=== PATIENT | male | born 1970 | race Caucasian/White ===

== ENCOUNTER 2020-04-01 00:11 | Emergency (ER) | payer OTHER ==
[~2020-04-01] VITALS: Ht 180.3 cm; Wt 80.7 kg
[~2020-04-01 00:11] MED LIST: CEPHALEXIN500 MG ORAL; MUPIROCIN22 GM TOPIC
--- NOTE | 2020-04-01 00:40 | NUR ---
ED Nurse Note: Pt traiged but stepped outside to "lock up" his belongings
--- NOTE | 2020-04-01 01:00 | NUR ---
ED Nurse Note: Pt never came back and was not seen by ERMD. removed from tracker, never assessed
--- NOTE | 2020-04-01 01:22 | Emergency Room Report ---
History of Present Illness General Chief Complaint: Hypertension Source: Patient Present Illness HPI Patient initially stated to intake that he wanted medications refilled. 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 Allergies: Coded Allergies: No Known Allergies (Unverified , 03/15/20) COVID-19 Screening Contact w/high risk pt: No Experienced COVID-19 symptoms?: No COVID-19 Testing performed MANAGER MEDIA RELATIONS: Yes COVID-19 Screening: Negative COVID-19 COVID-19 Testing Source: SYSTEMS SOFTWARE DEVELOPER Nursing Documentation-[facility] Past Medical History: No History, Except For Hx Hypertension: Yes Hx Diabetes: Yes Physical Exam Vital Signs Date Time Temp Pulse Resp B/P (MAP) Pulse Ox O2 Delivery O2 Flow Rate FiO2 04/01/20 00:14 99.1 107 18 181/128 (145) 97 Room Air Sp02 EP Interpretation: reviewed, normal Medical Decision Making Diagnostic Impression: Primary Impression: LWBSMD Additional Impression: Hypertension Qualified Codes: I10 - Essential (primary) hypertension ER Course Patient never came back to room 4. He said he had to go to his car to get something to show the MD. RN had warned him that he had to be seen because his blood pressure was high prior to his leaving for his car. No phone to contact patient. Last Vital Signs Date Time Temp Pulse Resp B/P (MAP) Pulse Ox O2 Delivery O2 Flow Rate FiO2 04/01/20 06:02 107 18 Room Air 04/01/20 06:02 99.1 181/128 97 Status: unchanged Disposition: LEFT W/OUT BEING SEEN Condition: Unknown Referrals: [facility],REFERRING (PCP) Manolo Cordero MD Apr 01, 2020 01:22
[2020-04-01 06:02] VITALS: BP 181/128
== END 2020-04-01 01:00 | disposition left against medical advice (07) ==
LOC: EMR 00:38
DX: Z76.0 Encounter for issue of repeat prescription (principal); Z53.21 Procedure and treatment not carried out due to patient leaving prior to being seen by health care provider; E11.9 Type 2 diabetes mellitus without complications

== ENCOUNTER 2020-06-14 14:34 | Emergency (ER) | payer OTHER ==
[~2020-06-14] VITALS: Ht 180.3 cm; Wt 81.6 kg
[2020-06-14 14:45] VITALS: BP 168/98
[2020-06-14] MEDS ORDERED: Piperacillin/Tazobactam 3.375 GM in NS 110 ML IVPB ONE (15:00)
[2020-06-14 15:30] LABS: BASOPHILS % (AUTO) 1.2 % (0.0-2.0); EOSINOPHILS % (AUTO) 2.6 % (0.0-3.0); HEMATOCRIT 37.5 % (42.0-52.0); HEMOGLOBIN 12.5 G/DL (14.2-18.0); LYMPHOCYTES % (AUTO) 23.6 % (20.0-45.0); MEAN CORPUSCULAR VOLUME 89 FL (80-99); MONOCYTES % (AUTO) 10.2 % (1.0-10.0); NEUTROPHILS % (AUTO) 62.4 % (45.0-75.0); PLATELET COUNT 294 K/UL (150-450); RED BLOOD COUNT 4.21 M/UL (4.70-6.10); RED CELL DISTRIBUTION WIDTH 14.8 % (11.6-14.8); WHITE BLOOD COUNT 7.8 K/UL (4.8-10.8)
[2020-06-14 15:41] LABS: ANION GAP 7 mmol/L (5-15); BLOOD UREA NITROGEN 18 mg/dL (7-18); CALCIUM 8.6 MG/DL (8.5-10.1); CARBON DIOXIDE 31 MMOL/L (21-32); CHLORIDE 101 MMOL/L (98-107); CREATININE 1.2 MG/DL (0.55-1.30); POTASSIUM 3.6 MMOL/L (3.5-5.1); SODIUM 138 MMOL/L (136-145)
[2020-06-14 15:46] LABS: ALANINE AMINOTRANSFERASE 17 U/L (12-78); ALBUMIN 3.2 G/DL (3.4-5.0); ALBUMIN/GLOBULIN RATIO 0.8 (1.0-2.7); ALKALINE PHOSPHATASE 84 U/L (46-116); ASPARTATE AMINO TRANSFERASE 30 U/L (15-37); BILIRUBIN,TOTAL 0.4 MG/DL (0.2-1.0)
--- NOTE | 2020-06-14 15:47 | Emergency Room Report ---
History of Present Illness General Chief Complaint: Upper Extremity Injury Source: Patient Present Illness HPI 50-year-old male with no known significant past medical history appears to be under the influence of unknown stimulus here complaining of a laceration left elbow that occurred 2 weeks ago. Patient reports that few days ago he went to [facility] and they wanted to admit him there however patient left AGAINST MEDICAL ADVICE. Patient has full range of motion of the elbow and denies any tingling or numbness. Denies any fever and chills, cellulitis left arm noted. Patient also mentions some ulceration left lower extremity. Appears to to be track lines. However patient denies IV drug use. Denies fever and chills. Denies other medical history. Denies any tingling or numbness. Allergies: Coded Allergies: No Known Allergies (Unverified , 03/15/20) COVID-19 Screening Contact w/high risk pt: No Experienced COVID-19 symptoms?: No COVID-19 Testing performed CREDENTIALER: No Patient History Past Medical History: see triage record Past Surgical History: none Pertinent Family History: none Immunizations: UTD Reviewed Nursing Documentation: PMH: Agreed; PSxH: Agreed Nursing Documentation-PMH Past Medical History: No History, Except For Hx Hypertension: Yes Hx Diabetes: Yes Review of Systems All Other Systems: negative except mentioned in HPI Physical Exam Vital Signs Date Time Temp Pulse Resp B/P (MAP) Pulse Ox O2 Delivery O2 Flow Rate FiO2 06/14/20 14:39 98.2 91 20 178/105 (129) 98 Room Air Sp02 EP Interpretation: reviewed, abnormal - Elevated blood pressure General Appearance: no apparent distress, alert, GCS 15, non-toxic Head: normocephalic, atraumatic Eyes: bilateral eye normal inspection, bilateral eye PERRL ENT: hearing grossly normal, normal pharynx, no angioedema, normal voice Neck: full range of motion, supple/symm/no masses Respiratory: chest non-tender, lungs clear, normal breath sounds, speaking full sentences Cardiovascular #1: regular rate, rhythm, no edema Cardiovascular #2: 2+ carotid (R), 2+ carotid (L), 2+ radial (R), 2+ radial (L), 2+ dorsalis pedis (R), 2+ dorsalis pedis (L) Gastrointestinal: normal bowel sounds, non tender, soft, non-distended, no guarding, no rebound Rectal: deferred Genitourinary: no CVA tenderness Musculoskeletal: back normal, no calf tenderness, pelvis stable, non-tender, swelling - Left elbow and forearm, ulceration noted Neurologic: alert, motor strength/tone normal, oriented x3, sensory intact, responsive, speech normal Psychiatric: judgement/insight normal, memory normal, mood/affect normal, no suicidal/homicidal ideation Skin: other - Infected laceration left elbow with pus drainage and cellulitis, also infected wound left lower extremity. Lymphatic: no adenopathy Medical Decision Making PA Attestation All diagnoses and treatment plans were reviewed and discussed with my supervising physician Dr. Heard Homeless Attestation The treating physician has assessed and agrees that patient is medically stable for outpatient disposition Diagnostic Impression: Primary Impression: Cellulitis of elbow Additional Impression: Cellulitis of left lower leg ER Course 50-year-old male with no known significant past medical history appears to be under the influence of unknown stimulus here complaining of a laceration left elbow that occurred 2 weeks ago. Patient reports that few days ago he went to [facility] and they wanted to admit him there however patient left AGAINST MEDICAL ADVICE. Patient has full range of motion of the elbow and denies any tingling or numbness. Denies any fever and chills, cellulitis left arm noted. Patient also mentions some ulceration left lower extremity. Appears to to be track lines. However patient denies IV drug use. Denies fever and chills. Denies other medical history. Denies any tingling or numbness. Ddx considered but are not limited to : Cellulitis, sepsis, superficial infection, abscess Vital signs: are WNL, pt. is afebrile H&PE are most consistent with: Cellulitis of elbow and lower leg ORDERS: Sepsis order set, x-ray of left elbow, clindamycin, ibuprofen ED INTERVENTIONS: Zosyn, wound care and dressed DISCHARGE: At this time pt. is stable for d/c to home. Will provide printed patient care instructions, and any necessary prescriptions. Care plan and follow up instructions have been discussed with the patient prior to discharge. Advised patient to follow primary care provider, gave a list of family practices for patient to follow-up with, if worsening symptoms return to the emergency room. EKG Diagnostic Results Rate: normal Rhythm: NSR ST Segments: no acute changes Other Impression No acute ST changes ASA given to the pt in ED: No Chest X-Ray Diagnostic Results Chest X-Ray Diagnostic Results : Chest X-Ray Ordered: Yes # of Views/Limited/Complete: 1 View Indication: Other EP Interpretation: Yes PA Xray: Interpretation reviewed, by supervising MD, and agrees with findings. Interpretation: no consolidation, no effusion, no pneumothorax Impression: No acute disease Electronically Signed by: Keri Mccauley PA-C Other X-Ray Diagnostic Results Other X-Ray Diagnostic Results : X-Ray ordered: Left elbow # of Views/Limited Vs Complete: 3 View Indication: Pain EP Interpretation: Yes PA Xray: Interpretation reviewed, by supervising MD, and agrees with findings. Interpretation: no dislocation, no soft tissue swelling, no fractures Impression: No acute disease Electronically Signed by: Keri Mccauley PA-C Last Vital Signs Date Time Temp Pulse Resp B/P (MAP) Pulse Ox O2 Delivery O2 Flow Rate FiO2 06/14/20 14:39 98.2 91 20 178/105 (129) 98 Room Air Disposition: HOME, SELF-CARE Condition: Stable Scripts Clindamycin Hcl* (CLINDAMYCIN HCL*) 150 Mg Capsule 300 MG ORAL FOUR TIMES A DAY for 7 Days, #28 CAP Prov: Keri Salmon 06/14/20 Ibuprofen (Ibu) 800 Mg Tablet 800 MG PO TID, #30 TAB Prov: Keri Salmon 06/14/20 Referrals: NON PHYSICIAN (PCP) Patient Instructions: Cellulitis, [id number], Wound Care Additional Instructions: Take medication as directed, follow-up with your primary care provider, if worsening symptoms return to the emergency room Keri Salmon Jun 14, 2020 15:47
[2020-06-14] MEDS ORDERED: CLINDAMYCIN HC150 MG ORAL (16:05)
[2020-06-14] MEDS ORDERED: IBU800 MG PO (16:05)
--- NOTE | 2020-06-14 16:25 | Diagnostic Imaging Report ---
Indications:Left elbow pain Technique: Three or 4 views of the elbow Comparison: None Findings: No acute fractures. No dislocations. The joint spaces are preserved Impression: Negative
--- NOTE | 2020-06-14 16:25 | Diagnostic Imaging Report ---
Indication: Chest pain Technique: One view of the chest Comparison: 05/27/2007 Findings: Lungs and pleural spaces are clear. Heart size is normal. No significant change Impression: No acute process
[2020-06-14 16:30] VITALS: BP 155/91
== END 2020-06-14 16:30 | disposition home or self-care (01) ==
LOC: EMR 15:00
DX: S51.012A Laceration without foreign body of left elbow, initial encounter (principal); L08.9 Local infection of the skin and subcutaneous tissue, unspecified; X58.XXXA Exposure to other specified factors, initial encounter; Y92.9 Unspecified place or not applicable; L03.116 Cellulitis of left lower limb; E11.9 Type 2 diabetes mellitus without complications; I10 Essential (primary) hypertension; R07.9 Chest pain, unspecified
CPT/HCPCS: 71045; 73080; 80053; 83605; 84484; 85025; 85610; 85730; 87040; 87070; 87205; 93005; 96365; G0480; J2543; Z7502; 99284

== ENCOUNTER 2020-10-12 16:21 | Emergency (ER) | payer OTHER ==
[~2020-10-12 16:21] MED LIST changes: +CLINDAMYCIN HC150 MG ORAL; +IBU800 MG PO
== END 2020-10-12 19:59 | disposition left against medical advice (07) ==
LOC: EDBD 16:21 → EMR 16:40
DX: R46.89 Other symptoms and signs involving appearance and behavior (principal); Z53.21 Procedure and treatment not carried out due to patient leaving prior to being seen by health care provider